=== PATIENT | male | born 1995 | race Caucasian/White ===

== ENCOUNTER 2019-06-14 01:00 | Emergency (ER) | payer SELFPAY, OTHER ==
[2019-06-14 01:14] LABS: ADD MAN DIFF? NO
[2019-06-14 01:16] LABS: WHITE BLOOD COUNT 11.2 10^3/ul (4.8-10.8)
[2019-06-14 01:16] LABS: BASOPHILS % 0.3 % (0.0-2.0); EOSINOPHILS # 0.1 10^3/ul (0.0-0.5); EOSINOPHILS % 0.7 % (0.0-7.0); HEMATOCRIT 46.6 % (42.0-52.0); HEMOGLOBIN 15.9 g/dl (14.0-18.0); LYMPHOCYTES # 2.6 10^3/ul (0.8-2.9); LYMPHOCYTES % 22.9 % (15.0-51.0); MEAN CORPUSCULAR HEMOGLOBIN 31.9 pg (29.0-33.0); MEAN CORPUSCULAR HGB CONC 34.1 g/dl (32.0-37.0); MEAN CORPUSCULAR VOLUME 93.4 fl (82.0-101.0); MONOCYTE # 0.9 10^3/ul (0.3-0.9); MONOCYTES % 7.6 % (0.0-11.0); NEUTROPHIL # 7.6 10^3/ul (1.6-7.5); NEUTROPHILS % 68.2 % (39.0-77.0); PLATELET COUNT 336 10^3/UL (140-415); RED BLOOD COUNT 4.99 10^6/ul (4.70-6.10); RED CELL DISTRIBUTION WIDTH 11.8 % (11.5-14.5)
[2019-06-14] MEDS: SOD CHLORIDE 0.9% 1,000 ML IV (02:01)
== END 2019-06-14 02:42 | disposition home or self-care (01) ==
LOC: E/R 01:00
DX: S21.111A Laceration without foreign body of right front wall of thorax without penetration into thoracic cavity, initial encounter (principal); I10 Essential (primary) hypertension; F17.210 Nicotine dependence, cigarettes, uncomplicated; X58.XXXA Exposure to other specified factors, initial encounter; Y92.9 Unspecified place or not applicable
CPT/HCPCS: 71045; 85025; 99285-25

== ENCOUNTER 2019-06-14 12:21 | Emergency (ER) | payer SELFPAY | END 2019-06-14 13:15 | disposition left against medical advice (07) | LOC: FTE 12:21 | DX: Z53.21 Procedure and treatment not carried out due to patient leaving prior to being seen by health care provider (principal) ==

== ENCOUNTER → 2019-06-19 | Emergency (ER) | payer SELFPAY | END | disposition home or self-care (01) | LOC: FTE 15:48 | DX: S21.112D Laceration without foreign body of left front wall of thorax without penetration into thoracic cavity, subsequent encounter (principal); I10 Essential (primary) hypertension; F17.210 Nicotine dependence, cigarettes, uncomplicated; X99.9XXD Assault by unspecified sharp object, subsequent encounter | CPT/HCPCS: 99283 ==